=== PATIENT | female | born 1995 | race Caucasian/White ===

== ENCOUNTER → 2018-12-19 | Outpatient (CLI) | payer MEDICAID | LOC: FIMAGING 12:13 | PROVIDERS: ATTEND Advanced Practice Midwife | DX: O46.92 Antepartum hemorrhage, unspecified, second trimester (principal); Z3A.14 14 weeks gestation of pregnancy ==

== ENCOUNTER → 2019-02-27 | Outpatient (CLI) | payer MEDICAID | LOC: FIMAGING 11:57 | PROVIDERS: ATTEND Advanced Practice Midwife | DX: O28.3 Abnormal ultrasonic finding on antenatal screening of mother (principal); Z3A.23 23 weeks gestation of pregnancy ==